=== PATIENT | male | born 1955 | race Hispanic/Latino ===

== ENCOUNTER 2017-04-17 14:13 | Emergency (ER) | payer OTHER ==
[2017-04-17 14:14] VITALS: BMI 22.2
[2017-04-17 14:23] VITALS: BP 109/70; PULSE 68; RESP 20; TEMP 97; O2SAT 98
[2017-04-17] MEDS ORDERED: Triamcinolone Acetonide 40 mg/mL Inj IM STA (14:48)
--- NOTE | 2017-04-17 15:02 | ED PDOC ---
HPI: General Adult Time Seen by Provider: 04/17/17 14:28 Chief Complaint (Nursing): Cough, Cold, Congestion Chief Complaint (Provider): Seasonal allergies History Per: Patient History/Exam Limitations: no limitations Current Symptoms Are (Timing): Still Present Additional Complaint(s): Les Mathew is a 61 year old male with previous medical history of seasonal allergies, who presents to the emergency department requesting Kenalog 40mg injection. Patient stated his PMD was giving him kenalog injections for chronic seasonal allergies, for the past several years until he retired. Patient states he was here in Oct 2016 for the injection and is requesting the same today. He has not yet found an ENT or traffic manager to administer these treatments to him. He states his new PMD who took over for his PMD who retired does not do kenalog injections in office. Patient states he usually gets 3-4 injections per year. PMD: Dr. Garcia Past Medical History Reviewed: Historical Data, Nursing Documentation, Vital Signs Vital Signs: Last Vital Signs Temp 97 F L 04/17/17 14:21 Pulse 68 04/17/17 14:21 Resp 20 04/17/17 14:21 BP 109/70 04/17/17 14:21 Pulse Ox 98 04/17/17 15:09 - Medical History PMH: Anxiety, Arthritis, Depression, HTN, Hypercholesterolemia - Surgical History Surgical History: Tonsillectomy - Family History Family History: States: No Known Family Hx - Living Arrangements Living Arrangements: With Family - Social History Current smoker - smoking cessation education provided: No Alcohol: None Drugs: Denies - Home Medications Home Medications: Ambulatory Orders Medication Instructions Recorded Propranolol [Inderal] 10 mg PO DAILY 07/14/16 Simvastatin [Zocor] 40 mg PO DAILY 07/14/16 Topiramate [Topamax] 50 mg PO BID 07/14/16 [id number] CD [Cardizem CD] 300 mg PO DAILY 07/14/16 - Allergies Allergies/Adverse Reactions: Allergies Allergy/AdvReac Type Severity Reaction Status Date / Time ibuprofen Allergy RASH Verified 04/17/17 14:21 Review of Systems ROS Statement: Except As Marked, All Systems Reviewed And Found Negative Constitutional: Negative for: Fever ENT: Positive for: Nose Congestion Cardiovascular: Negative for: Chest Pain Respiratory: Negative for: Cough Gastrointestinal: Negative for: Vomiting Neurological: Negative for: Headache, Dizziness Physical Exam - Reviewed Nursing Documentation Reviewed: Yes Vital Signs Reviewed: Yes - Physical Exam Appears: Positive for: Well, Non-toxic, No Acute Distress Skin: Negative for: Rash ENT: Positive for: Nasal Congestion. Negative for: Pharyngeal Erythema, Tonsillar Swelling Cardiovascular/Chest: Positive for: Regular Rate, Rhythm Respiratory: Positive for: Normal Breath Sounds. Negative for: Accessory Muscle Use, Crackles, Rales, Rhonchi, Wheezing, Respiratory Distress Extremity: Positive for: Normal ROM Neurologic/Psych: Positive for: Alert, Oriented - ECG O2 Sat by Pulse Oximetry: 98 (RA) Pulse Ox Interpretation: Normal Medical Decision Making Medical Decision Making: Initial Impression: Seasonal allergies Initial Plan: * Kenalog 40mg INJ * Educated on need to finding a specialist for skilled nursing care and treatment - ENT referral provided Scribe Attestation: Documented by Lucretia Novak, acting as a scribe for Kaitlynn Kate PA-C. Provider Scribe Attestation: All medical record entries made by the Scribe were at my direction and personally dictated by me. I have reviewed the chart and agree that the record accurately reflects my personal performance of the history, physical exam, medical decision making, and the department course for this patient. I have also personally directed, reviewed, and agree with the discharge instructions and disposition. Disposition - Clinical Impression Clinical Impression: Seasonal allergies - Patient ED Disposition Is Patient to be Admitted: No Counseled Patient/Family Regarding: Diagnosis, Need For Followup - Disposition Referrals: Denis Noel MD [Staff Provider] - Disposition: Routine/Home Disposition Time: 15:26 Condition: STABLE Additional Instructions: FOLLOW UP DARWIN WITH EAR, NOSE AND THROAT SPECIALIST TO SET UP ROUTINE VISITS THROUGHOUT THE YEAR FOR ALLERGY INJECTIONS. Instructions: Allergies (ED) Forms: [employer] (Macanese)
== END 2017-04-17 15:29 | disposition home or self-care (01) ==
LOC: H.ER 14:13
DX: J30.2 Other seasonal allergic rhinitis (principal); I10 Essential (primary) hypertension; E78.00 Pure hypercholesterolemia, unspecified